=== PATIENT | female | born 1975 | race Caucasian/White ===

== ENCOUNTER 2017-05-03 10:39 | Emergency (ER) | payer OTHER ==
[~2017-05-03] VITALS: Ht 177.8 cm; Wt 110.0 kg
[~2017-05-03 10:39] MED LIST: B12-1CHW CHEW; CHEW500C2 PO; FLUO20SO3 PO; LISI-357 PO; PANT20 PO; PANT40P PO; SUCR1S PO; TRAD5TAB PO; VITA400C28
[2017-05-03 10:45] VITALS: BP 157/71; PULSE 85; RESP 20; TEMP 97.7; O2SAT 98
[2017-05-03] MEDS ORDERED: LISI10TA3 PO (10:57)
[2017-05-03] MEDS ORDERED: VITA200013 (10:57)
--- NOTE | 2017-05-03 11:08 | PD ---
HPI . Abdominal pain Chief Complaint: Abdominal Pain Time Seen by Provider: 10:55 Travel History International Travel<30 days: No Contact w/Intl Traveler<30days: No Traveled to known affect area: No History of Present Illness HPI This patient presents with chief complaint of right-sided abdominal pain. Onset was 4 days ago. The pain waxes and wanes. She rates at 7/10. She has no associated nausea, vomiting, diarrhea. No decreased appetite. No urinary tract symptoms. No decreased urinary output. She has no known modifying factors. Pertinent medical history is previous gastric bypass surgery. She reports no recent acute weight loss. PFSH Past Medical History Hx Anticoagulant Therapy: No Arthritis: Yes Autoimmune Disease: No Anxiety: Yes (30mg PROZAC DAILY) Depression: Yes Heart Rhythm Problems: No Cancer: No Cardiac Catheterization: No Cardiovascular Problems: Yes High Cholesterol: No Chemotherapy: No Congestive Heart Failure: No Cerebrovascular Accident: No Diabetes: Yes (DM2) Patient Takes Glucophage: No Diminished Hearing: No Endocrine: Yes GERD: No Glaucoma: No Genitourinary: No Hepatitis: No Hiatal Hernia: No Hypertension: Yes Immune Disorder: No Medical other: Yes (ANEMIA) Musculoskeletal: Yes Neurologic: No Psychiatric: No Reproductive: No Respiratory: No Thyroid Disease: No ?: Not : 2 Para: 2 Tubal Ligation: Yes Past Surgical History Abdominal Surgery: Yes (gastric bypass 2010) Section: Yes (2) Coronary Artery Bypass Graft: No Gynecologic Surgery: Yes (FIBROID ABLATION, TUBAL LIGATION, CSECTION X2) Hysterectomy: No Pacemaker: No Other Surgery: Yes (GASTRIC BYPASS 02/2010) Social History Alcohol Use: No Tobacco Use: No Substance Use: No Allergies-Medications (Allergen,Severity, Reaction): Coded Allergies: No Known Allergies (Verified Adverse Reaction, Unknown, 05/03/17) Reported Meds & Prescriptions Reported Meds & Active Scripts Active Reported Vitamin D (Cholecalciferol) 2,000 Unit Cap 50,000 WEEKLY Lisinopril 10 Mg Tab 10 Mg PO DAILY Review of Systems Except as stated in HPI: all other systems reviewed are Neg General / Constitutional: No: Fever, Chills Cardiovascular: No: Chest Pain or Discomfort Respiratory: No: Cough, Shortness of Breath Gastrointestinal: Positive: Abdominal Pain, No: Nausea, Vomiting, Diarrhea Genitourinary: No: Urgency, Frequency, Dysuria, Hematuria, Decreased Urinary Output Physical Exam Narrative GENERAL: Patient appears very comfortable. SKIN: warm/dry. Normal color and turgor. HEAD: Normocephalic. Atraumatic. EYES: Pupils equal and round. No scleral icterus. No injection or drainage. ENT: No nasal bleeding or discharge. Mucous membranes pink and moist. NECK: Trachea midline. Full range of motion without pain.. CARDIOVASCULAR: Regular rate and rhythm. Heart sounds normal. RESPIRATORY: No accessory muscle use. Clear to auscultation. Breath sounds equal bilaterally. GASTROINTESTINAL: Abdomen soft. Right upper quadrant tenderness with a positive Graves sign. Bowel sounds present. Nondistended. : No CVA tenderness. MUSCULOSKELETAL: No obvious deformities. NEUROLOGICAL: Awake and alert. No obvious cranial nerve deficits. Motor grossly within normal limits. Normal speech. PSYCHIATRIC: Appropriate mood and affect; insight and judgment normal. Data Data Last Documented VS Vital Signs Date Time Temp Pulse Resp B/P (MAP) Pulse Ox O2 Delivery O2 Flow Rate FiO2 05/03/17 10:45 97.7 85 20 157/71 (99) 98 Orders Orders Complete Blood Count With Diff (05/03/17 11:01) Comprehensive Metabolic Panel (05/03/17 11:01) Lipase (05/03/17 11:01) Ct Abd/Pel W Iv Contrast(Rout) (05/03/17 11:01) Iv Access Insert/Monitor (05/03/17 11:01) Ecg Monitoring (05/03/17 11:01) Oximetry (05/03/17 11:01) Morphine Inj (Morphine Inj) (05/03/17 11:15) Ondansetron Inj (Zofran Inj) (05/03/17 11:15) Sodium Chloride 0.9% Flush (Ns Flush) (05/03/17 11:15) Iohexol 350 Inj (Omnipaque 350 Inj) (05/03/17 11:29) Labs Laboratory Tests Test 05/03/17 11:00 White Blood Count 7.4 TH/MM3 Red Blood Count 4.49 MIL/MM3 Hemoglobin 12.3 GM/DL Hematocrit 37.4 % Mean Corpuscular Volume 83.2 FL Mean Corpuscular Hemoglobin 27.4 PG Mean Corpuscular Hemoglobin Concent 32.9 % Red Cell Distribution Width 13.7 % Platelet Count 317 TH/MM3 Mean Platelet Volume 8.9 FL Neutrophils (%) (Auto) 61.0 % Lymphocytes (%) (Auto) 30.2 % Monocytes (%) (Auto) 5.1 % Eosinophils (%) (Auto) 2.8 % Basophils (%) (Auto) 0.9 % Neutrophils # (Auto) 4.5 TH/MM3 Lymphocytes # (Auto) 2.2 TH/MM3 Monocytes # (Auto) 0.4 TH/MM3 Eosinophils # (Auto) 0.2 TH/MM3 Basophils # (Auto) 0.1 TH/MM3 CBC Comment DIFF FINAL Differential Comment Blood Urea Nitrogen 9 MG/DL Creatinine 0.80 MG/DL Random Glucose 184 MG/DL Total Protein 7.9 GM/DL Albumin 4.1 GM/DL Calcium Level 8.7 MG/DL Alkaline Phosphatase 134 U/L Aspartate Amino Transf (AST/SGOT) 26 U/L Alanine Aminotransferase (ALT/SGPT) 37 U/L Total Bilirubin 0.5 MG/DL Sodium Level 138 MEQ/L Potassium Level 4.0 MEQ/L Chloride Level 104 MEQ/L Carbon Dioxide Level 27.7 MEQ/L Anion Gap 6 MEQ/L Estimat Glomerular Filtration Rate 78 ML/MIN Lipase 123 U/L MDM Medical Decision Making Medical Screen Exam Complete: Yes Emergency Medical Condition: Yes Medical Record Reviewed: Yes (Patient was hospitalized here in 2016 because of her marginal ulcer. She had a subsequent EGD done which proved a marginal ulcer. She was discharged on Carafate.) Differential Diagnosis Differential diagnosis of abdominal pain includes but is not limited to gastritis, pancreatitis, hepatitis, gastroenteritis, constipation, urinary retention, peptic ulcer disease, diverticulitis or appendicitis Narrative Course Patient presents with chief complaint of abdominal pain. Her physical exam is compatible with cholecystitis. CBC & BMP Diagram 05/03/17 11:00 Total Protein 7.9, Albumin 4.1, Calcium Level 8.7, Alkaline Phosphatase 134 H, Aspartate Amino Transf (AST/SGOT) 26, Alanine Aminotransferase (ALT/SGPT) 37, Total Bilirubin 0.5, lipase 123 Last Impressions Abdomen/Pelvis CT 05/03/17 1101 Signed Impressions: Service Date/Time: Wednesday, May 03, 2017 11:22 - CONCLUSION: 1. No evidence of acute process. 2. Hepatomegaly with diffuse advanced steatosis. 3. Stable postsurgical changes in the stomach. 4. No evidence of suspicious mass or lymphadenopathy. Scotty Stahl MD This patient is stable for discharge. The history, exam, diagnostic testing, and current condition do not suggest any significant pathology to warrant further testing, continued ED treatment, admission, or surgical evaluation at this point. No EMC was found. The patient 's condition is stable and appropriate for discharge. Diagnosis Primary Impression: Acute abdominal pain Patient Instructions: Abdominal Pain (ED), General Instructions Additional Instructions: Follow-up with your primary care provider or with Dr. Tejeda if the pain continues. You may need further studies. Med/Other Pt SpecificInfo: Prescription(s) given Scripts Dicyclomine (Bentyl) 10 Mg Cap 20 MG PO QID for Bowel Management, #10 CAP 0 Refills Prov: Tomasa Bermudez MD 05/03/17 Disposition: 01 DISCHARGE HOME Condition: Stable Tomasa Bermudez MD May 03, 2017 11:08
[2017-05-03] MEDS ORDERED: SODIUM CHLORIDE 0.9% FLUSH 10 ML FLUSH IV FLUSH PRN (11:15)
[2017-05-03] MEDS ORDERED: MORPHINE SULFATE 4 MG/ML INJ IV PUSH ONE (11:15)
[2017-05-03] MEDS ORDERED: ONDANSETRON HCL 4 MG/2 ML VIAL IVP ONE (11:15)
[2017-05-03] MEDS ORDERED: IOHEXOL 350 MG/ML 10 ML VIAL (for RAD DIAG) IVCONTRAST ONE (11:29)
[2017-05-03 11:42] LABS: AUTOMATED NEUTROPHIL # 4.5 TH/MM3 (1.8-7.7); BASOPHIL # 0.1 TH/MM3 (0-0.2); BASOPHIL % 0.9 % (0.0-2.0); EOSINOPHIL # 0.2 TH/MM3 (0-0.4); EOSINOPHIL % 2.8 % (0.0-4.0); HEMATOCRIT 37.4 % (35.0-46.0); HEMOGLOBIN 12.3 GM/DL (11.6-15.3); LYMPH % 30.2 % (9.0-44.0); LYMPHOCYTE # 2.2 TH/MM3 (1.0-4.8); MEAN CELL VOLUME 83.2 FL (80.0-100.0); MEAN CORPUSCULAR HEMOGLOBIN 27.4 PG (27.0-34.0); MEAN CORPUSCULAR HGB CONC 32.9 % (32.0-36.0); MEAN PLATELET VOLUME 8.9 FL (7.0-11.0); MONO % 5.1 % (0.0-8.0); MONOCYTE # 0.4 TH/MM3 (0-0.9); PLATELET COUNT 317 TH/MM3 (150-450); RED BLOOD COUNT 4.49 MIL/MM3 (4.00-5.30); RED CELL DISTRIBUTION WIDTH 13.7 % (11.6-17.2); WHITE BLOOD COUNT 7.4 TH/MM3 (4.0-11.0)
--- NOTE | 2017-05-03 11:51 | RADRPT ---
EXAM DATE/TIME: 05/03/2017 11:22 [facility] COMPARISON: CT ABDOMEN & PELVIS W CONTRAST, December 14, 2015, 10:03. INDICATIONS : Right lower abdomen pain for four days. IV CONTRAST: 96 cc Omnipaque 350 (iohexol) IV ORAL CONTRAST: No oral contrast ingested. RADIATION DOSE: 13.88 CTDIvol (mGy) MEDICAL HISTORY : Hypertension. diabetes SURGICAL HISTORY : Gastric bypass. ENCOUNTER: Initial ACUITY: 4 - 6 days PAIN SCALE: 7/10 LOCATION: Right lower quadrant TECHNIQUE: Volumetric scanning of the abdomen and pelvis was performed. Using automated exposure control and ad justment of the mA and/or kV according to patient size, radiation dose was kept as low as reasonably achievable to obtain optimal diagnostic quality images. DICOM format image data is available electro nically for review and comparison. FINDINGS: LOWER LUNGS: The visualized lower lungs are clear. LIVER: The liver is enlarged and diffusely hypodense. It measures 25 cm in craniocaudad dimension. There are no focal space-occupying lesions are seen biliary duct dilatation. There are no calcified gallstones . SPLEEN: Normal size without lesion. PANCREAS: Within normal limits. KIDNEYS: Normal in size and shape. There is no mass, stone or hydronephrosis. ADRENAL GLANDS: Within normal limits. VASCULAR: There is no aortic aneurysm. BOWEL/MESENTERY: Postsurgical changes are identified along the stomach wall. Small intestinal tract and colon are unre markable. There are no active inflammatory changes or evidence of ileus. ABDOMINAL WALL: Within normal limits. RETROPERITONEUM: There is no lymphadenopathy. BLADDER: No wall thickening or mass. REPRODUCTIVE: Within normal limits. INGUINAL: There is no lymphadenopathy or hernia. MUSCULOSKELETAL: Within normal limits for patient age. CONCLUSION: 1. No evidence of acute process. 2. Hepatomegaly with diffuse advanced steatosis. 3. Stable postsurgical changes in the stomach. 4. No evidence of suspicious mass or lymphadenopathy. Scotty Stahl MD on May 03, 2017 at 11:46 Board Certified Radiologist. This report was verified electronically.
[2017-05-03 12:00] VITALS: O2SAT 97
[2017-05-03 12:03] LABS: ALBUMIN 4.1 GM/DL (3.4-5.0); ALT (GPT) 37 U/L (10-53); AST (GOT) 26 U/L (15-37); BICARBONATE 27.7 MEQ/L (21.0-32.0); BLOOD UREA NITROGEN 9 MG/DL (7-18); CALCIUM 8.7 MG/DL (8.5-10.1); CHLORIDE 104 MEQ/L (98-107); GLOMERULAR FILTRATION RATE 78 ML/MIN (>89); GLUCOSE,RANDOM 184 MG/DL (74-106); SODIUM (NA) 138 MEQ/L (136-145)
[2017-05-03 12:05] LABS: ALKALINE PHOSPHATASE 134 U/L (45-117); TOTAL BILIRUBIN ADULT 0.5 MG/DL (0.2-1.0); TOTAL PROTEIN 7.9 GM/DL (6.4-8.2)
[2017-05-03] MEDS ORDERED: DICY10 PO (12:20)
== END 2017-05-03 13:11 | disposition home or self-care (01) ==
LOC: NEPC 10:39
DX: R10.9 Unspecified abdominal pain (principal); I10 Essential (primary) hypertension; Z98.84 Bariatric surgery status
CPT/HCPCS: 74177; 80053; 83690; 85025; 96374; 96375; 99284; J2270; J2405; Q9967